=== PATIENT | male | born 1990 | race Two or more races ===

== ENCOUNTER 2017-08-03 06:25 | Day surgery (SDC) | payer BC, OTHER ==
[2017-08-02 09:00] LABS: HEMATOCRIT 51.5 % (39.2-51.8); HEMOGLOBIN 17.6 g/dL (13.7-18.0)
[2017-08-02 09:13] LABS: ASPARTATE AMINO TRANSFERASE 25 U/L (15-37); BLOOD UREA NITROGEN 11 mg/dL (7-18)
[~2017-08-03] VITALS: Ht 175.3 cm; Wt 116.9 kg
[~2017-08-03 06:25] MED LIST: ALBU8.5H8 INH; TRAM50TA2 PO
[2017-08-03] MEDS ORDERED: EPINEPHRINE 1 MG/ML, 1ML ONE (06:50)
[2017-08-03] MEDS ORDERED: BUPIVACAINE/PF 0.5% ONE (06:50)
[2017-08-03 07:01] VITALS: BP 125/83
[2017-08-03] MEDS ORDERED: LACTATED RINGERS 1,000 ML IV SCH (07:29)
[2017-08-03] MEDS ORDERED: FENTANYL PF 100 MCG/2ML ONE ×3 (07:33→09:29)
[2017-08-03] MEDS ORDERED: HYDROmorphone 1 MG/ML, 1ML ONE (07:33)
[2017-08-03] MEDS ORDERED: ROCURONIUM 10 MG/ML ONE (07:57)
[2017-08-03] MEDS ORDERED: METOPROLOL 1 MG/ML, 5ML ONE (07:57)
[2017-08-03] MEDS ORDERED: NEOSTIGMINE 1 MG/ML, 10ML ONE (07:57)
[2017-08-03] MEDS ORDERED: PROPOFOL 10 MG/ML, 20ML ONE (07:57)
[2017-08-03] MEDS ORDERED: KETOROLAC 30 MG/1 ML ONE (07:57)
[2017-08-03] MEDS ORDERED: ONDANSETRON 2MG/ML, 2ML ONE (07:57)
[2017-08-03] MEDS ORDERED: METOCLOPRAMIDE 5 MG/ML, 2ML ONE (07:57)
[2017-08-03] MEDS ORDERED: SUCCINYLCHOLINE 20 MG/ML, 10ML ONE (07:57)
[2017-08-03] MEDS ORDERED: DEXAMETHASONE 4 MG/ML, 5ML ONE (07:57)
[2017-08-03] MEDS ORDERED: CEFOTETAN 2 GM ONE (07:57)
[2017-08-03] MEDS ORDERED: GLYCOPYRROLATE 0.2MG/1ML, 5ML ONE (07:57)
[2017-08-03] MEDS ORDERED: ONDANSETRON 2MG/ML, 2ML IVPush PRN (08:30)
[2017-08-03] MEDS ORDERED: MEPERIDINE/PF 25MG/0.5ML IVPush PRN (08:30)
[2017-08-03] MEDS ORDERED: ACETAMINOPHEN 325 MG TABLET PO PRN (08:30)
[2017-08-03] MEDS ORDERED: PROMETHAZINE 25 MG/ML, 1ML IV PRN (08:30)
[2017-08-03] MEDS ORDERED: DIAZEPAM 5 MG/ML, 2ML IVPush PRN (08:30)
[2017-08-03] MEDS ORDERED: hydrALAzine 20 MG/ML, 1ML IV PRN (08:30)
[2017-08-03] MEDS ORDERED: HYDROmorphone 1 MG/ML, 1ML IV PRN (08:30)
[2017-08-03] MEDS ORDERED: OXYcodone 5 MG/5 ML ORAL.SOL UDC PO PRN (08:30)
[2017-08-03] MEDS ORDERED: MIDAZOLAM 1 MG/ML, 2ML IV PRN (08:30)
[2017-08-03] MEDS ORDERED: LABETALOL 5MG/ML, 20ML IV PRN (08:30)
[2017-08-03] MEDS ORDERED: THROMBIN 5,000 UNIT VIAL TP ONE (09:01)
[2017-08-03] MEDS ORDERED: ACETAMINOPHEN 650 MG/20.3 ML UDC ONE (09:29)
[2017-08-03] MEDS ORDERED: OXYcodone 5 MG/5 ML ORAL.SOL UDC ONE (09:29)
[2017-08-03] MEDS: FENTANYL PF 100 MCG/2ML IV PRN ×2 (09:35→10:05)
[2017-08-03] MEDS ORDERED: MEPERIDINE/PF 25MG/0.5ML ONE (09:48)
== END 2017-08-03 12:40 | disposition home or self-care (01) ==
LOC: OUT 06:25
PROVIDERS: ATTEND Surgery
PROC: 0FT44ZZ Resection of Gallbladder, Percutaneous Endoscopic Approach (ICD-10-PCS; principal; 2017-08-03 08:00)
DX: K80.10 Calculus of gallbladder with chronic cholecystitis without obstruction (principal); J45.909 Unspecified asthma, uncomplicated; Z98.890 Other specified postprocedural states
CPT/HCPCS: 36415; 47562; 71020; 80053; 85025; 88304; 93005; J0171; J0330; J1100; J1170; J1885; J2175; J2405; J2704; J2710; J2765; J3010; J3490; J7120; S0074